=== PATIENT | male | born 1995 | race Caucasian/White ===

== ENCOUNTER 2016-07-10 14:35 | Emergency (ER) | payer OTHER ==
[2016-07-10] MEDS ORDERED: ONDANSETRON 4 MG TAB.RAPDIS PO ONE (14:53)
--- NOTE | 2016-07-10 14:53 | ER Document Report ---
ED Medical Screen (RME) - General Stated Complaint: NAUSEA, ABDOMINAL PAIN Mode of Arrival: Ambulatory Information source: Patient Notes: Patient presents complaining of nausea and abdominal pain that started at 1 AM. No urinary symptoms. Lengthy. Patient recently had wisdom teeth extracted on 07/05/16. Patient extremely pale in triage. hx: Unspecified GI disorder with weight loss of 50 pounds, anxiety, autism I have greeted and performed a rapid initial assessment of this patient. A comprehensive ED assessment and evaluation of the patient, analysis of test results and completion of the medical decision making process will be conducted by additional ED providers. TRAVEL OUTSIDE OF THE [place] IN LAST 30 DAYS: No - Related Data Allergies/Adverse Reactions: No Known Allergies Allergy (Verified 07/10/16 14:50) Past Medical History GI Medical History: Reports: Hx Gastroesophageal Reflux Disease, Hx Irritable Bowel Physical Exam - Vital signs Vitals: Temp Pulse Resp BP Pulse Ox 98.2 F 98 20 117/76 99 07/10/16 14:49 07/10/16 14:49 07/10/16 14:49 07/10/16 14:49 07/10/16 14:49 - Abdominal Tenderness: Tender - Upper abdominal tenderness Course - Vital Signs Vital signs: Temp Pulse Resp BP Pulse Ox 98.2 F 98 20 117/76 99 07/10/16 14:49 07/10/16 14:49 07/10/16 14:49 07/10/16 14:49 07/10/16 14:49
[2016-07-10 16:42] LABS: ABSOLUTE LYMPHOCYTES (AUTO) 0.8 10^3/uL (0.5-4.7); ABSOLUTE MONOCYTES (AUTO) 0.3 10^3/uL (0.1-1.4); ABSOLUTE NEUT (AUTO) 6.7 10^3/uL (1.7-8.2); BASOPHILS % (AUTO) 0.3 % (0-2); EOSINOPHILS % (AUTO) 0.1 % (0-6); HEMATOCRIT 40.8 % (37.9-51.0); HGB HCT DIFFERENCE 1.2; LYMPHOCYTES % (AUTO) 10.6 % (13-45); MEAN CORPUSCULAR HEMOGLOBIN 30.3 pg (27.0-33.4); MEAN CORPUSCULAR HGB CONC 34.3 g/dL (32.0-36.0); MEAN CORPUSCULAR VOLUME 88 fl (80-97); MONOCYTES % (AUTO) 3.4 % (3-13); RED BLOOD COUNT 4.62 10^6/uL (4.35-5.55); RED CELL DISTRIBUTION WIDTH 13.2 % (11.5-14.0); SEGMENTED NEUTROPHILS % (AUTO) 85.6 % (42-78); WHITE BLOOD COUNT 7.8 10^3/uL (4.0-10.5)
[2016-07-10 16:54] LABS: AMORPHOUS SEDIMENT,URINE TRACE /HPF; APPEARANCE,URINE CLOUDY; BILIRUBIN,URINE NEGATIVE (NEGATIVE); GLUCOSE, URINE NEGATIVE (NEGATIVE); KETONES,URINE 80 mg/dL (NEGATIVE); LEUKOCYTE ESTERASE,URINE NEGATIVE (NEGATIVE); NITRITE,URINE NEGATIVE (NEGATIVE); PROTEIN,URINE NEGATIVE (NEGATIVE); URINE SPECIFIC GRAVITY 1.017; UROBILINOGEN,URINE NEGATIVE mg/dL (<2.0)
[2016-07-10 17:11] LABS: ALANINE AMINOTRANSFERASE 44 U/L (21-72); ALBUMIN 4.5 g/dL (3.5-5.0); ALKALINE PHOSPHATASE 91 U/L (38-126); ANION GAP 14 (5-19); ASPARTATE AMINO TRANSFERASE 28 U/L (17-59); BILIRUBIN,TOTAL 1.1 mg/dL (0.2-1.3); BLOOD UREA NITROGEN 11 mg/dL (7-20); CALCIUM 9.6 mg/dL (8.4-10.2); CARBON DIOXIDE 26 mmol/L (22-30); CHLORIDE 100 mmol/L (98-107); CREATININE RESULT 0.72 mg/dL (0.52-1.25); GLUCOSE 76 mg/dL (75-110); LIPASE 39.5 U/L (23-300); POTASSIUM 4.2 mmol/L (3.6-5.0); SODIUM 140.4 mmol/L (137-145); TOTAL PROTEIN 7.8 g/dL (6.3-8.2)
[2016-07-10] MEDS ORDERED: ONDANSETRON HCL INJ/PF 4 MG/2 ML SDV IV ONE (19:09)
[2016-07-10] MEDS ORDERED: NORMAL SALINE 1000 ML 1,000 ML IV ONE (19:09)
--- NOTE | 2016-07-10 19:45 | ER Document Report ---
ED General - General Chief Complaint: Upper Abdominal Pain Stated Complaint: NAUSEA, ABDOMINAL PAIN Mode of Arrival: Ambulatory Notes: Patient is a 21-year-old male with past medical history of autism who had all 4 wisdom teeth resected 3 days ago who presents with decreased appetite mother states that she's been unwilling to eat anything beyond "just a few bites here and there" and only take sips of fluids. No history of similar symptoms in the past. Nothing improves or worsens his symptoms. He has not had any vomiting or diarrhea. Denies any abdominal pain. No prior history of abdominal surgeries. He has not seen his primary care physician regarding today's concerns. TRAVEL OUTSIDE OF THE [place] IN LAST 30 DAYS: No - Related Data Allergies/Adverse Reactions: No Known Allergies Allergy (Verified 07/10/16 14:50) Past Medical History - General Information source: Patient - Social History Smoking Status: Never Smoker Chew tobacco use (# tins/day): No Frequency of alcohol use: None Drug Abuse: None Lives with: Parents Family History: Reviewed & Not Pertinent Patient has suicidal ideation: No Patient has homicidal ideation: No Renal/ Medical History: Denies: Hx Peritoneal Dialysis GI Medical History: Reports: Hx Gastroesophageal Reflux Disease, Hx Irritable Bowel Surgical Hx: Negative - Immunizations Hx Diphtheria, Pertussis, Tetanus Vaccination: No Review of Systems - Review of Systems Notes: Constitutional: Negative for fever. HENT: Negative for sore throat. Eyes: Negative for visual changes. Cardiovascular: Negative for chest pain. Respiratory: Negative for shortness of breath. Gastrointestinal: Negative for abdominal pain, vomiting or diarrhea. Positive for anorexia Genitourinary: Negative for dysuria. Musculoskeletal: Negative for back pain. Skin: Negative for rash. Neurological: Negative for headaches, weakness or numbness. 10 point ROS negative except as marked above and in HPI. Physical Exam - Vital signs Vitals: Temp Pulse Resp BP Pulse Ox 98.2 F 98 20 117/76 99 07/10/16 14:49 07/10/16 14:49 07/10/16 14:49 07/10/16 14:49 07/10/16 14:49 Interpretation: Normal Notes: PHYSICAL EXAMINATION: GENERAL: Well-appearing, well-nourished and in no acute distress. HEAD: Atraumatic, normocephalic. EYES: Pupils equal round and reactive to light, extraocular movements intact, sclera anicteric, conjunctiva are normal. ENT: nares patent, oropharynx clear without exudates. Moist mucous membranes. NECK: Normal range of motion, supple without lymphadenopathy LUNGS: Breath sounds clear to auscultation bilaterally and equal. No wheezes rales or rhonchi. HEART: Regular rate and rhythm without murmurs ABDOMEN: Soft, nontender, normoactive bowel sounds. No guarding, no rebound. No masses appreciated. EXTREMITIES: Normal range of motion, no pitting or edema. No cyanosis. NEUROLOGICAL: No focal neurological deficits. Moves all extremities spontaneously and on command. PSYCH: Normal mood, normal affect. SKIN: Warm, Dry, normal turgor, no rashes or lesions noted. Mild pallor which mother states is patient's baseline Course - Re-evaluation Re-evalutation: 07/10/16 19:43 Patient presents with nausea and decreased appetite but is eating a piece of bread when I entered the room and drinking fluids. He has not had any actual vomiting. He has not complained of any focal abdominal pain and has no focal pain on exam. He does not appear dehydrated on examination and vitals are within normal limits. Labs are unremarkable. At this time I do not suspect an ileus, bowel obstruction, acute cholelithiasis and pancreatitis, or any other life-threatening pathology. The areas of tooth extractions appear well healing without associate swelling or purulent draiange. At this time will discharge with return precautions and follow-up recommendations. Verbal discharge instructions given a the bedside and opportunity for questions given. Medication warnings reviewed. Patient is in agreement with this plan and has verbalized understanding of return precautions and the need for primary care follow-up in the next 24-72 hours. - Vital Signs Vital signs: Temp Pulse Resp BP Pulse Ox 98.4 F 93 18 107/60 100 07/10/16 20:41 07/10/16 20:41 07/10/16 20:41 07/10/16 20:41 07/10/16 20:41 - Laboratory Result Diagrams: 07/10/16 16:05 07/10/16 16:05 Laboratory results interpreted by me: 07/10/16 07/10/16 16:05 16:05 Seg Neutrophils % 85.6 H Lymphocytes % 10.6 L Urine Ketones 80 H Urine Ascorbic Acid 20 H Discharge - Discharge Clinical Impression: Nausea, Anorexia Condition: Good Disposition: HOME, SELF-CARE Additional Instructions: You have been seen in the Emergency Department (ED) today for nausea . Your work up today has not shown a clear cause for your symptoms. Follow up with your doctor as soon as possible regarding today's emergent visit and your symptoms of nausea. Return to the Emergency Department (ED) if you develop abdominal pain, bloody vomiting, bloody diarrhea, if you are unable to tolerate fluids due to vomiting , or if you develop other symptoms that concern you. Forms: Return to School Referrals: RAE NICK,RASHID Markham MD [Primary Care Provider] - Follow up tomorrow
[2016-07-10 20:43] VITALS: BP 107/60
== END 2016-07-10 20:42 | disposition home or self-care (01) ==
LOC: ER 14:35
DX: R11.0 Nausea (principal); R63.0 Anorexia; R10.10 Upper abdominal pain, unspecified
CPT/HCPCS: 99284; 96361; 96374; 36415; 83690; 85025; 80053; 81001; J2405; J7030

== ENCOUNTER → 2016-12-18 | Outpatient (CLI) | payer OTHER ==
--- NOTE | 2016-12-18 13:29 | ST Modified Barium Swallow ---
Recommendation - Recommendations Recommendations: 1) DIET: continue current diet. No penetration or aspiration observed during MBSS. 2) ST in agreement with continued GI follow-up as pt's reported symptoms appear consistent with GI related issues (pt and pt's family report volume limiting, increased length of meal times, stomach pain, sensation of feeling need to burp with sensation of "pressure"). 3) Pt may benefit from brief course of speech therapy treatment for pharyngeal strengthening due to mildly reduced base of tongue resulting in trace-mild residuals of puree and soft solids at the level of the valleculae. Alternating bites and sips and chin tuck were not observed to clear residuals. Pt was observed to take limited number of bites and sips as well as very small bites and sips difficult to identify if UES minimally opening due to esophageal deficit or size of bolus. Residuals of solids may be due to pressure generation deficits. While speech therapy may improve pharyngeal phase of swallow this does not explain all of pt' s reported symptoms. Medical Diagnoses - Medical Diagnoses Medical Diagnosis Description & ICD-10 Code(s): GERD, constipation, sensation of difficulty swallowing Other Medical Diagnoses/Co-Morbidities: autism, aspbergers, agoraphobia, anxiety - ICD-10 Tx Diagnosis Coding (1) Dysphagia, oropharyngeal phase ICD-10 Code(s): R13.12 - DYSPHAGIA, OROPHARYNGEAL PHASE (2) Dysphagia, pharyngoesophageal phase ICD-10 Code(s): R13.14 - DYSPHAGIA, PHARYNGOESOPHAGEAL PHASE ST Modified Barium Swallow - General Date: 12/18/16 Referring Physician: Dr Kirkland Risks/Precautions: None Date of Onset: 12/18/12 Reason for Referral: sensation of difficulty swallowing - History History obtained from: Patient, Parent/Caregiver - mother and father -: Medical - Pt attended session with his mother and father, all aiding in history intake. Mother reports symptoms began in 2012 and that pt has lost approximately 50lbs since onset of symptoms. Reported symptoms include; significant pressure in chest which results in inability to eat food, "trouble burping" throughout the day not limited to meals (pt reports burping approximately every 10 minutes), stomach pain, globus sensation which pt states can be in chest or neck, and lengthy meals (father reports pt may take 6-8 hours to eat 1 cheeseburger). Pt reports "burping" helps reduce pressure in chest and that he is unable to eat unless he burps. Family denies history of PNA or bronchitis. Pt denies coughing with PO intake, however does report choking "because of pressure." Family reports has been followed by GI and reports several EGDs completed with reports of mild reflux. Father states pt was on reflux medication however is no longer taking. Mother and father report have upcoming GI appointment at [facility]. Medications: none reported. Father reports at one time taking medication for reflux however no longer taking. Allergies: lactose intolerant, high fructose corn syrup. - Functional Status Prior Functional Status: INDEPENDENT: feeding Current Functional Limitations: feeding - Subjective Patient/caregiver goal(s): safe swallow Cognitive-Linguistic Function: WNL Speech Intelligibility: WNL Current Nutritional Means: PO Current PO diet: Soft Current symptoms: Weight loss, Poor intake, c/o Globus sensation Pain: 2/5 - stomach pain - Objective Assessment: Upright, Left Lateral - Food Trials Used Food trials used: Thin liquids, Pureed - pt brought in preferred applesauce - Oral-Motor Skills Dentition: Full Velo-pharyngeal function: Unremarkable Laryngeal Function: Volitional Cough, Volitional Swallow - Assessment Oral prep: Normal - small bites and sips observed Labial closure: Adequate Leakage: None Mastication: Adequate Lingual Movement: Normal Oral stage: Piecemeal Deglutition - Pharyngeal Stage Initiation of Pharyngeal Stage Reflex: Normal Decreased laryngeal elevation: No Reduced Velopharyngeal Closure: no Reduced pressure generation: Yes - mild reduced tongue-based retraction: Yes - mild Pre-swallow pooling in valleculae: None Pre-Swallow pooling in pyriforms: None Reduced Thyro-Hyoid approximation: No Reduced epiglottic excursion: No Reduced pharyngeal peristalsis/contraction: No Post-swallow residulas vallecular: Mild - trace-mild on puree and soft solids Post-Swallow residuals in pyriforms: Mild - observed to pool to level of the pyriforms-trace - Fall Risk Assessment Medications/Conditions that increase fall risks include: Antidepressants, sedatives, anti-arrhythmic, diuretic, benzodiazipenes, neuroleptics. BP regulation problems, cardiac problems, balance or gait deficits, neurological problems. Is patient considered at risk for falls: no Fall Risk Actions Taken: No action needed - Behavioral Observations During evaluation process patient: was pleasant, able to answer questions - mother and father helping with history intake - Treatment / Educational Needs: Treatment/Education Needs: Treatment consisted of patient education on the role of the Speech Pathologist. Patient's plan of care and golas were communicated as well as scheduling and attendance policies. Recommendations for initial home program were shared. Patient demonstrated understanding and verbalized agreement. - Impression/Summary Laryngeal Penetration: No Tracheal Aspiration: no Ineffective compensatory strategies: chin tuck Compesatory strategies: Attempted alternating solids and liquids, however was not observed to clear residuals of solids at the level of the valleculae. Patient presents with: Oral-Pharyngeal dysph. - mild Risk of Aspiration: Mild Risk of nutritional compromise: Severe - mod-severe, family reports limited intake and weightloss Evaluation and Findings: Intermittent breaks allowed throughout evaluation per pt request. Pt voicing needs for "burping", "stretching", and movement after bites of solids. Pt also indicated stomach pain. Pt observed to utilize relaxation strategies (eg. preferred task on phone) during these times. - Recommendations NPO: no Pt/Family education and followup with MD: Yes Dysphagia therapy with DIRECTOR EHS: yes, dysphagia therapy Information, Precautions and Recommendations: Patient (Verbal), Family Member ( Verbal) - to mother and father - Time Total Time: 60 - Plan of Care Patient to follow-up with referring physician: Yes Strategies to optimize patient understanding include:: ongoing assessment of educational needs, implementation of educational strategies, and re-education. - - -: Thank you for the opportunity to work with this patient and his/her family. Should you have any questions about this patient's plan or progress, I can be reached at [phone]. Charge G Code? - - -: No
--- NOTE | 2016-12-18 18:09 | RADIOLOGY REPORT (SQ) ---
EXAM DESCRIPTION: FAUSTINOIE SWALLOW COMPLETED DATE/TIME: 12/18/2016 10:12 am REASON FOR STUDY: SENSATION OF INABILITY TO SWALLOW COMPARISON: None. TECHNIQUE: Videofluoroscopic swallowing examination was performed in conjunction with speech patholo gy. Videofluoroscopic imaging was obtained and reviewed and these are the findings: RADIATION DOSE: 1.6 minutes of fluoroscopy was used. 3 images saved to PACS. LIMITATIONS: None FINDINGS: The patient was brought into the fluoro room and placed upright on a modified barium swall ow chair. The patient was then given multiple consistencies mixed with barium to swallow under live fluoroscopic video guidance. According to the Speech Pathologist there was no penetration or aspirat ion. IMPRESSION: NO EVIDENCE OF PENETRATION OR ASPIRATION.PLEASE SEE SPEECH PATHOLOGIST REPORT FOR OTHER FINDINGS AND RECOMMENDATIONS. COMMENT: Quality ID [id number]: Final reports for procedures using fluoroscopy that document radiation exp osure indices, or exposure time and number of fluorographic images (if radiation exposure indices are not available) TECHNICAL DOCUMENTATION: JOB ID: [id number]- All Rights Reserved
== END ==
LOC: RAD 08:29
PROVIDERS: ATTEND Student in an Organized Health Care Education/Training Program
DX: K21.9 Gastro-esophageal reflux disease without esophagitis (principal); R13.10 Dysphagia, unspecified
CPT/HCPCS: 74230

== ENCOUNTER → 2017-01-15 | Day surgery (SDC) | payer OTHER ==
[~2017-01-15] MED LIST: LIDOCAINE 2% JELLY 5 ML TUBE ONE
== END ==
LOC: END 07:41
PROVIDERS: ATTEND Specialist
PROC: 4A0B7BZ Measurement of Gastrointestinal Pressure, Via Natural or Artificial Opening (ICD-10-PCS; principal; 2017-01-15)
DX: F84.0 Autistic disorder (principal); R13.10 Dysphagia, unspecified
CPT/HCPCS: 91010